=== PATIENT | male | born 1980 | race African-American/Black ===

== ENCOUNTER 2017-02-10 18:14 | Inpatient (IN) | payer OTHER ==
[~2017-02-10] VITALS: Ht 170.2 cm; Wt 128.8 kg
--- NOTE | 2017-02-10 18:39 | NUR ---
PT TO ED FOR EVAL OF THROAT PAIN X 2 DAYS, COUGH, AND NAUSEA. COUGH NAUSEA STARTED TODAY. PT AWAKE AND ALERT. BREATHING EVEN UNLABORED. NO DISTRESS NOTED.
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
--- NOTE | 2017-02-10 18:54 | NUR ---
PLEASE ENTER FULL NAMES OF STUDENT/RN Documentation completed by (Student Nurse): CASSIE KUMAR Documentation reviewed by (Registered Nurse): RAEANN PARKINSON
--- NOTE | 2017-02-10 19:13 | NUR ---
OUTSIDE DELIVERER JOSHI AT BEDSIDE.
--- NOTE | 2017-02-10 19:32 | NUR ---
DR Jacobson AT BEDSIDE.
--- NOTE | 2017-02-10 19:59 | NUR ---
LAB AT BEDSIDE.
--- NOTE | 2017-02-10 20:07 | NUR ---
XRAY AT BEDSIDE.
[2017-02-10 20:17] LABS: PLATELET COUNT 247 x10^3mcL (130-400); RED CELL DISTRIBUTION WIDTH 13.4 % (11.5-14.5)
--- NOTE | 2017-02-10 20:34 | NUR ---
NOTIFIED DR OWUSU OF WBC OF 21.8.
--- NOTE | 2017-02-10 20:42 | NUR ---
DIRECTOR GLOBAL AT BEDSIDE FOR BLOOD CULTURE.
[2017-02-10 20:51] LABS: BAND NEUTROPHIL 3 % (0-10); BASOPHIL 0 % (0-2); MONOCYTE 4 % (0-7); SEGMENTED NEUTROPHILS 89 % (37-75)
[2017-02-10 21:03] LABS: UA SPECIFIC GRAVITY 1.015 (1.005-1.035); microscopic required? YES; urine erythrocyte TRACE (NEGATIVE)
[2017-02-10 21:45] LABS: CALCIUM 8.7 mg/dL (8.5-10.1); CARBON DIOXIDE 28.3 mmol/L (21-32); CHLORIDE SERUM 105 mmol/L (98-107); CREATININE SERUM 1.4 mg/dL (0.7-1.3); GFR1 > 60 mL/min; GLUCOSE SERUM 101 mg/dL (74-106); POTASSIUM SERUM 3.7 mmol/L (3.5-5.1); SODIUM SERUM 144 mmol/L (136-145)
--- NOTE | 2017-02-10 21:47 | NUR ---
NOTIFIED PRIMARY RN RENNY OF LACTIC ACID OF 2.4
--- NOTE | 2017-02-10 21:48 | NUR ---
DR. OWUSU NOTIFIED OF LACTIC ACID OF 2.4
[2017-02-10 21:50] LABS: ALBUMIN 3.4 g/dL (3.4-5.0); ALKALINE PHOSPHATASE 103 U/L (46-116); ALT/SGPT 23 U/L (16-63); AST/SGOT 19 U/L (15-37); BILIRUBIN TOTAL 0.5 mg/dL (0.20-1.00); TOTAL PROTEIN, SERUM 6.8 g/dL (6.4-8.2)
--- NOTE | 2017-02-11 00:42 | NUR ---
REPORT GIVEN TO BLANCA
[2017-02-11 02:05] VITALS: BP 97/46
[2017-02-11 02:56] LABS: MAGNESIUM 1.7 mg/dL (1.8-2.4); PHOSPHOROUS 1.7 mg/dL (2.5-4.9)
[2017-02-11 03:01] LABS: FREE T4 0.99 ng/dL (0.76-1.46); FREE THYROXINE INDEX 2.2 ug/dL (1.4-4.5); T4(THYROXINE) 6.5 ug/dL (4.7-13.3)
--- NOTE | 2017-02-11 03:04 | NUR ---
Received from ED via janett @ 0200hrs. Dx of cellulitis. Alert and oriented. Ambulatory. No resp.distress on room air. Medicated as ordered for c/o headache, tylenol given. Admission assessment done. Normal sinus rhythm on tele #37. on IVF, IV levaquin and cleocin. Will cont.to monitor. Call light within reach.
[2017-02-11 03:28] LABS: T3 TOTAL 0.98 ng/mL
[2017-02-11 06:07] LABS: PLATELET COUNT 223 x10^3mcL (130-400); RED CELL DISTRIBUTION WIDTH 13.7 % (11.5-14.5)
[2017-02-11 06:15] VITALS: BP 116/59
[2017-02-11 06:20] LABS: CARBON DIOXIDE 27.5 mmol/L (21-32); CHLORIDE SERUM 106 mmol/L (98-107); CREATININE SERUM 1.2 mg/dL (0.7-1.3); GFR1 > 60 mL/min; GLUCOSE SERUM 105 mg/dL (74-106); POTASSIUM SERUM 4.2 mmol/L (3.5-5.1); SODIUM SERUM 141 mmol/L (136-145)
[2017-02-11 06:34] LABS: ALBUMIN 2.7 g/dL (3.4-5.0)
--- NOTE | 2017-02-11 06:38 | NUR ---
TEMP.101.7. removed blankets and ambulated. Cooling measures applied. Rechecked temp.99.4 at this time.
--- NOTE | 2017-02-11 08:00 | NUR ---
AWAKE AND ALERT. TEMP 99.4. TELE #37 SINUS RHYTHM RATE 81. RESP 18 EVEN. BREATH SOUNDS CLEAR. NO COUGH OR SOB. PULSE OX 96% RA. ABD ROUNDED BUT SOFT, BOWEL TONES PRESENT. LBM=5-17-17. VOIDING QS. NO PITTING EDEMA. PT IS OBESE. PEDAL PULSES PRESENT. SCD TO LLE. DX CELLULITIS RLE. C/O MILD DISCOMFORT TO RLE 12/03. IV PATENT RAC INFUSING NORMAL SALINE 160CC/HR. SIDE RAILS UP X2. CALL LIGHT IN REACH.
--- NOTE | 2017-02-11 08:45 | NUR ---
DR VELA AND MEDICAL TEAM IN ON ROUNDS. CHARGE AND PRIMARY NURSE PRESENT. DISCUSSED PLAN OF CARE. CONTINUE IV ANTIBIOTICS AND MED FOR PAIN NEEDED. PT VERBALIZED UNDERSTANDING.
[2017-02-11 08:53] LABS: BAND NEUTROPHIL 15 % (0-10); BASOPHIL 0 % (0-2); MONOCYTE 5 % (0-7); SEGMENTED NEUTROPHILS 78 % (37-75)
[2017-02-11 08:54] LABS: PLATELET MORPHOLOGY PLATELETS NORMAL
--- NOTE | 2017-02-11 09:12 | NUR ---
MED WITH TYLENOL 650MG PO ORDERED FOR MILD DISCOMFORT "12/03 TO RIGHT ANKLE."
--- NOTE | 2017-02-11 10:00 | NUR ---
PT REPORTS "PAIN BETTER 2/10". CALL LIGHT IN REACH.
[2017-02-11 10:38] VITALS: BP 104/59
--- NOTE | 2017-02-11 12:45 | NUR ---
TOLERATED REGULAR LUNCH WELL. IV CONTINUES PATENT. CALL LIGHT IN REACH.
[2017-02-11 13:55] VITALS: BP 101/51
--- NOTE | 2017-02-11 17:37 | NUR ---
C/O HEADACHE 02/02. SLIGHT DISCOMFORT TO RLE 10/05. MED WITH TYLENOL ORDERED.
[2017-02-11 17:52] VITALS: BP 117/68
--- NOTE | 2017-02-11 18:36 | NUR ---
CONTINUES TO C/O HEADACHE. SPOKE WITH DR DAWN. NEW ORDER FOR TORADOL. MED WITH TORADOL 15MG IVP ORDERED.
--- NOTE | 2017-02-11 19:09 | NUR ---
REPORTS "HEADACHE BETTER 11/05." WILL ENDORSE TO CAN INTAKE WORKER RN. CALL LIGHT IN REACH. IVF CONTINUE 160CC/HR.
--- NOTE | 2017-02-11 20:57 | NUR ---
PATIENT REFUSED [facility] SCHEDULED MEDICATION AT THIS TIME. PAIN MEDICATION PROVIDED EARLIER WAS EFFECTIVE AND PATIENT STATES HE HAS NO PAIN AT THIS TIME. CALL LIGHT WITHIN REACH AND ALL NEEDS MET.
[2017-02-11 21:19] VITALS: BP 100/56
--- NOTE | 2017-02-12 00:03 | NUR ---
SAFETY ROUNDS MADE, NO S/SX OF DISTRESS NOTED. CALL LIGHT WITHIN REACH.
[2017-02-12 05:23] VITALS: BP 114/61
[2017-02-12 06:29] LABS: CALCIUM 8.3 mg/dL (8.5-10.1); CARBON DIOXIDE 27.6 mmol/L (21-32); CHLORIDE SERUM 107 mmol/L (98-107); GFR1 > 60 mL/min; GLUCOSE SERUM 91 mg/dL (74-106); MAGNESIUM 2.1 mg/dL (1.8-2.4); PHOSPHOROUS 3.1 mg/dL (2.5-4.9); SODIUM SERUM 142 mmol/L (136-145)
[2017-02-12 06:32] LABS: PLATELET COUNT 214 x10^3mcL (130-400); RED CELL DISTRIBUTION WIDTH 13.6 % (11.5-14.5)
[2017-02-12 07:01] LABS: BASOPHIL % 0 % (0-2)
--- NOTE | 2017-02-12 07:52 | NUR ---
AWAKE AND ALERT, C/O MILD HEADACH. TEMP 98.9. MED SURG PT. RESP 18 EVEN. BREATH SOUNDS CLEAR. PULSE OX 96% RA. ABD ROUNDED BUT SOFT, LBM THIS AM. VOIDING QS. NO EDEMA. PULSES PRESENT. SCD IN PLACE. DENIES PAIN TO RLE DX CELLULITIS. IV PATENT RAC WITH IVF RATE DECREASED TO 50CC/HR. SIDE RAILS UP X2. CALL LIGHT IN REACH.
--- NOTE | 2017-02-12 08:30 | NUR ---
C/O "DULL HEADACHE 01/03." MED WITH TORADOL 15MG IVP.
--- NOTE | 2017-02-12 08:50 | NUR ---
REPORTS "HEADACHE BETTER NOW." IV CONTINUES PATENT. DR KRUEGER AND MEDICAL TEAM IN ON ROUNDS. DISCUSSED DX CELLULITIS WITH ELEVATED WBC, TRENDING DOWN. WILL CONTINUE IV ANTIBIOTICS FOR ONE MORE DAY. RE-EVAL LABS IN AM AND POSSIBLE DISCHARGE HOME TOMORROW. PT VERBALIZED UNDERSTANDING.
[2017-02-12 09:26] VITALS: BP 104/52
--- NOTE | 2017-02-12 12:13 | NUR ---
PT RESTING. NO DISTRESS NOTED. AMBULATES WELL IN ROOM. IV CONTINUES PATENT. CALL LIGHT IN REACH.
[2017-02-12 16:51] VITALS: BP 104/53
--- NOTE | 2017-02-12 17:30 | NUR ---
PT RESTING WELL, AMBULATES FREELY. DENIES PAIN. IV PATENT. SCD IN PLACE. TOLERATES DIET WELL. CALL LIGHT IN REACH.
--- NOTE | 2017-02-12 21:02 | NUR ---
RECEIVED PT BACK FROM [facility]AN[facility] RNALEXANDR[facility]. PATIENT QUIETLY RESTING IN BED. NO S/SX OF DISTRESS NOTED. VERBALIZES RELIEF FROM PAIN MEDICATION GIVEN EARLIER FOR HEADACHE PAIN. CALL LIGHT WITHIN REACH AND ALL SAFETY MEASURES IN PLACE.
[2017-02-12 21:13] VITALS: BP 120/64
--- NOTE | 2017-02-13 03:15 | NUR ---
PATIENT C/O HEADACHE 03/05 ADMINISTERED PAIN MEDICATION (SEE EMAR).
--- NOTE | 2017-02-13 05:18 | NUR ---
ALL SAFETY MEASURES IN PLACE. VERBALIZED RELIEF FROM PAIN MEDICATION GIVEN PRIOR. CALL LIGHT WITHIN REACH.
[2017-02-13 05:58] VITALS: BP 108/64
[2017-02-13 06:04] LABS: PLATELET COUNT 220 x10^3mcL (130-400); RED CELL DISTRIBUTION WIDTH 13.7 % (11.5-14.5)
[2017-02-13 06:39] LABS: BASOPHIL % 0 % (0-2)
[2017-02-13] MEDS ORDERED: CLEOCIN HCL300 MG PO (07:07)
[2017-02-13] MEDS ORDERED: LEVAQUIN500 M1 PO (07:07)
[2017-02-13] MEDS ORDERED: LAC PO (07:08)
--- NOTE | 2017-02-13 07:15 | NUR ---
Received patient awake and alert in bed no complaints, denies pain, IV intact, RLE edema with warm to touch; skin intact but dried scaly noted. POC updated. Needs anticipated.
--- NOTE | 2017-02-13 08:33 | NUR ---
PATIENT RESTING IN BED NO COMPLAINT, RT AT BEDSIDE CHECKING TO SEE IF PATIENT NEED BREATHING TX; ALL DUE MEDS GIVEN.
[2017-02-13 09:10] VITALS: BP 108/64
[2017-02-13 10:27] VITALS: BP 106/57
--- NOTE | 2017-02-13 10:51 | NUR ---
Patient resting in bed awake, denies pain, no complaints. Discharge instruction and teaching handouts given. Medications explained. Patient verbalize will f/u with PCP and flower picker medication at [facility]. IV dc'd and intact. Offered towels per request for wash up; instruct to call nurse when ready to leave.
--- NOTE | 2017-02-13 11:58 | NUR ---
Patient wheel out by RN julio cesar stable condition no complaints. All belongings with patient.
== END 2017-02-13 11:52 | disposition home or self-care (01) | DRG 383 ==
LOC: ED 18:14 → DU 02-11 00:18 → MU 02-11 21:03
PROVIDERS: Emergency Medicine; Family Medicine; ADMIT Family Medicine
DX: L03.115 Cellulitis of right lower limb (principal); N17.0 Acute kidney failure with tubular necrosis; E43 Unspecified severe protein-calorie malnutrition; R31.9 Hematuria, unspecified; R00.0 Tachycardia, unspecified; E83.39 Other disorders of phosphorus metabolism; E78.5 Hyperlipidemia, unspecified; E87.2 Acidosis; Z59.0 Homelessness; Z68.35 Body mass index [BMI] 35.0-35.9, adult
CPT/HCPCS: 80307; 83880; 84439; 87804; J1885; J1956; J3475; J3490; J7030; Q0092; Q0162